=== PATIENT | female | born 1955 | race Caucasian/White ===

== ENCOUNTER 2019-08-26 08:18 | Emergency (ER) | payer OTHER ==
[2019-08-26 08:42] VITALS: BP 113/57; PULSE 84; TEMP 98.2; BMI 16.7
[2019-08-26] MEDS ORDERED: morphine CARPU-JECT 2 MG/1 ML DISP.SYRIN IM ONE (09:07)
--- NOTE | 2019-08-26 09:14 | PDOC ---
History of Present Illness - General Chief Complaint: Back Pain Stated Complaint: BACK PAIN Time Seen by Provider: 08/26/19 08:55 History Source: Patient Exam Limitations: Clinical Condition - History of Present Illness Initial Comments: 08/26/19 09:41 Patient with history of kidney stones, hypertension and hypothyroid present with complaint of three-day history of left flank pain, urinary frequency, burning with urination and suprapubic abdominal pain. Patient was seen by OPERATIONS MANAGER/COORDINATOR and was made and started on Macrobid antibiotics and Pyridium yesterday for UTI but was referred to rule out kidney stone. Patient denies fever, chills, nausea or vomiting. Denies diarrhea or hematuria. Patient reported taking 2 doses of systems home gabapentin for pain without improvement. Denies any other symptoms Is this a multiple visit Asthma Patient?: No Timing/Duration: other (3 days) Past History - Past Medical History Allergies/Adverse Reactions: Allergies Allergy/AdvReac Type Severity Reaction Status Date / Time No Known Allergies Allergy Verified 08/26/19 08:38 Home Medications: Ambulatory Orders Methocarbamol [Robaxin -] 500 mg PO BID PRN #14 tablet 08/26/19 Methylprednisolone [Medrol Dose James] 4 mg PO ASDIR #21 tablet 08/26/19 COPD: No HTN: Yes Kidney Stones: Yes Thyroid Disease: Yes - Psycho Social/Smoking Cessation Hx Smoking History: Never smoked Review of Systems - Review of Systems Able to Perform ROS?: Yes Is the patient limited Jordanian proficient: No Constitutional: No: Chills, Fever, Malaise HEENTM: No: Symptoms Reported Respiratory: No: Symptoms reported Cardiac (ROS): No: Symptoms Reported ABD/GI: Yes: Symptoms Reported, See HPI, Abdominal cramping (suprapubic pain). No: Abdominal Distended, Abd. Pain w/ defecation, Blood Streaked Bowels, Constipated, Diarrhea, Difficulty Swallowing, Nausea, Poor Fluid Intake, Rectal Bleeding, Vomiting : Yes: Burning, Dysuria, Frequency, Pain (left flank pain), Urgency. No: Discharge, Hematuria Musculoskeletal: No: Symptoms Reported Neurological: No: Symptoms reported All Other Systems: Reviewed and Negative *Physical Exam - Vital Signs Last Vital Signs Temp Pulse Resp BP Pulse Ox 98.2 F 84 18 113/57 L 99 08/26/19 08:32 08/26/19 08:32 08/26/19 08:32 08/26/19 08:32 08/26/19 08:32 - Physical Exam Comments: 08/26/19 11:09 GENERAL: Well developed, well nourished. Awake and alert in moderate acute distress. CARDIOVASCULAR: Regular rate and rhythm. No murmurs, rubs, or gallops. PULMONARY: No evidence of respiratory distress. Lungs clear to auscultation bilaterally. No wheezing, rales or rhonchi. ABDOMINAL: Soft. Moderate tenderness to left flank and suprapubic area without guarding or rebound. Non-distended. No organomegaly. Normoactive bowel sounds MUSCULOSKELETAL : Moderate tenderness to left paravertebral muscle of lumbar spine and left flank area. No CVA tenderness. No bony deformities EXTREMITIES: No cyanosis. No clubbing. No edema. No calf tenderness. SKIN: Warm and dry. Normal capillary refill. No rashes. No jaundice. NEUROLOGICAL: Alert, awake, appropriate. No motor deficits in the lower extremities. Gait is normal without ataxia. PSYCHIATRIC: Cooperative. Good eye contact. Appropriate mood and affect. General Appearance: Yes: Nourished, Appropriately Dressed, Apparent Distress ED Treatment Course - LABORATORY CBC & Chemistry Diagram: 08/26/19 09:17 08/26/19 09:17 - RADIOLOGY Radiology Studies Ordered: Category Date Time Status SPIRAL- RENAL-STONE CT [CT] Stat CT Scan 08/26/19 09:07 Ordered Medical Decision Making - Medical Decision Making 08/26/19 09:42 Patient with history of kidney stones, hypertension and hypothyroid present with complaint of three-day history of left flank pain, urinary frequency, burning with urination and suprapubic abdominal pain. Patient was seen by OPERATIONS MANAGER/COORDINATOR and was made and started on Macrobid antibiotics and Pyridium yesterday for UTI but was referred to rule out kidney stone. Patient denies fever, chills, nausea or vomiting. Denies diarrhea or hematuria. Patient reported taking 2 doses of systems home gabapentin for pain without improvement. Denies any other symptoms Exam significant for moderate tenderness to left flank area and suprapubic tenderness without guarding or rebound. No CVA tenderness. Patient afebrile. Symptoms likely cystitis versus kidney stone. UA, urine culture, CBC and CMP labs ordered. Spiral CT ordered to rule out kidney stone. Morphine 2 mg IM ordered for pain. Treat based on lab and imaging results 08/26/19 11:07 UA unremarkable. CBC and chemistry lab within normal limits. Spiral CT of abdominal pelvis shows no acute pathology or renal stone. Patient symptoms likely muscle pain from possible previously past renal stone or OPERATIONS MANAGER/COORDINATOR etiology of pain. Patient be discharge on Medrol James given ALLERGIC to NSAIDs for pain and Robaxin muscle relaxer to follow-up with OPERATIONS MANAGER/COORDINATOR for follow-up care. Patient reported she was not fully examined by her OPERATIONS MANAGER/COORDINATOR and advised to follow-up back with her OPERATIONS MANAGER/COORDINATOR for reevaluation. Lab and imaging results given to patient. Patient advised to finished prescribed Macrobid Abx by her OPERATIONS MANAGER/COORDINATOR and wiull be contacted with urine cx results. Patient stable for discharge Discharge - Discharge Information Problems reviewed: Yes Clinical Impression/Diagnosis: Acute left flank pain, Dysuria Condition: Stable Disposition: HOME - Admission No - Additional Discharge Information Prescriptions: Methocarbamol [Robaxin -] 500 mg PO BID PRN #14 tablet PRN Reason: Back Pain Methylprednisolone [Medrol Dose James] 4 mg PO ASDIR #21 tablet - Follow up/Referral - Patient Discharge Instructions Patient Printed Discharge Instructions: DI for Flank Pain Additional Instructions: Your CATs scan shows no kidney stones or acute pathology. Your labs are normal. Take medications as prescribed. Increase fluid intake. Follow-up back with your OPERATIONS MANAGER/COORDINATOR as discussed Print Language: PORTUGUESE - Post Discharge Activity
[2019-08-26] MEDS ORDERED: MORPHINE SULFATE 2 MG/ML VIAL ONE (09:30)
[2019-08-26 09:40] LABS: URINE APPEARANCE CLEAR; URINE BILIRUBIN NEGATIVE (NEGATIVE); URINE COLOR YELLOW; URINE GLUCOSE (UA) NEGATIVE (NEGATIVE); URINE KETONE NEGATIVE (NEGATIVE); URINE LEUK ESTERASE NEGATIVE (NEGATIVE); URINE NITRITE NEGATIVE (NEGATIVE); URINE PROTEIN NEGATIVE (NEGATIVE); URINE UROBILINOGEN 0.2 mg/dL (0.2-1.0)
[2019-08-26 09:41] LABS: BASO % 0.3 % (0-2.0); EOS % 3.2 % (0-4.5); HEMATOCRIT 42.3 % (32.4-45.2); HEMOGLOBIN 13.8 GM/dL (10.7-15.3); LYMPH % 41.7 % (8-40); MCH 29.1 pg (25.7-33.7); MCHC 32.7 g/dl (32.0-36.0); MEAN CELL VOLUME 89.1 fl (80-96); MEAN PLT VOLUME 7.1 fl (7.5-11.1); MONO % 7.3 % (3.8-10.2); NEUT % 47.5 % (42.8-82.8); PLATELET COUNT 343 K/MM3 (134-434); RBC 4.75 M/mm3 (3.60-5.2); WHITE BLOOD COUNT 4.9 K/mm3 (4.0-10.0)
[2019-08-26 10:07] LABS: ALBUMIN 4.2 g/dl (3.4-5.0); BILIRUBIN,TOTAL 0.4 mg/dL (0.2-1); BLOOD UREA NITROGEN 14.1 mg/dL (7-18); CALCIUM 9.1 mg/dL (8.5-10.1); CREATININE 0.7 mg/dL (0.55-1.3); POTASSIUM 4.3 mmol/L (3.5-5.1); TOT PROT 7.9 g/dl (6.4-8.2)
== END 2019-08-26 10:59 | disposition home or self-care (01) ==
LOC: JER 08:18
DX: R30.0 Dysuria (principal); R10.30 Lower abdominal pain, unspecified; I10 Essential (primary) hypertension; E03.9 Hypothyroidism, unspecified; Z87.442 Personal history of urinary calculi
CPT/HCPCS: 36415; 74176-TC; 80053; 81003; 85025; 87086; 96372; 99283-25